=== PATIENT | female | born 2000 | race Hispanic/Latino ===

== ENCOUNTER 2024-08-20 17:49 | Emergency (ER) | payer MEDICAID, SELFPAY ==
[2024-08-20 18:05] VITALS: BP 106/75; PULSE 88; RESP 20; TEMP 37.3; O2SAT 100
--- NOTE | 2024-08-20 18:13 | ED_ITS ---
HPI - URI/Sore Throat General Chief Complaint: Upper Respiratory Infection Stated Complaint: Sore Throat Source: patient Mode of arrival: ambulatory Limitations: no limitations History of Present Illness HPI Narrative: Patient presents to the [facility] with complaints of a sore thoat, body aches, and chills for 2 days. She also is complaining of abdomen pain and blood in her stool. Patient states that she was late with her period last month and had a period that only lasted 3 days when it came. She says she was took a test last month, but it was invalid. She typically is constipated, but she has n ever noticed blood in her stool before. Denies any fever, SOB or difficulty swallowing. Related Data Allergies Allergy/AdvReac Type Severity Reaction Status Date / Time amoxicillin AdvReac Intermediate Nausea and Verified 08/20/24 18:14 Vomiting Review of Systems Review of Systems: CONSTITUTIONAL: Reports body aches and chills. Denies fever or sweats. EYES: Denies visual changes, redness, or discharge. ENT: Reports sore throat. Denies rhinorrhea, congestion, or otalgia. CARDIOVASCULAR: Denies chest pain, palpitations, or edema. RESPIRATORY: Denies dyspnea. GASTROINTESTINAL: Reports abdominal pain, nausea, vomiting, and blood in stool. SKIN: Denies rash. NEUROLOGIC: Reports Headache. All systems reviewed & are unremarkable except as noted in HPI and below PMFSH Comments At time of signature, I have reviewed and agree with nursing past medical, surgical, social and family history unless otherwise noted. Please see nursing chart for further information. There is no relevant family history pertinent to the presenting complaint. Exam Narrative: GENERAL: Ill-appearing, ?no acute distress. EYES: ?conjunctivae clear ENT: Mucous membranes moist. TM pearly cazares with normal light reflex bilaterally; no tragal tenderness. Oropharynx erythematous without lesions. Tonsils enlarged with exudate. No drooling, no hoarseness, no trismus, uvula midline. No tripod positioning, hot potato voice, or soft palate swelling. NECK: Supple. No lymphadenopathy CHEST: Clear to auscultation, breath sounds equal. ?No respiratory distress, speaks in full sentences. HEART: Regular rate and rhythm. No murmur heard. SKIN: Warm, dry, no rash. NEURO: Alert and oriented x3.? GI: Inspection: normal to inspection GI Palp: Yes abdominal tenderness, Yes Soft to palpation and No Guarding due to palpation present (GI) Percussion: Yes normal to percussion Auscultation: normal bowel sounds Course Course Level of Care: Express Care Visit Vital Signs Vital signs: Vital Signs Temperature 99.2 F 08/20/24 18:05 Pulse Rate 88 08/20/24 18:05 Respiratory Rate 20 08/20/24 18:05 Blood Pressure 106/75 08/20/24 18:05 Pulse Oximetry 100 08/20/24 18:05 Temperature 99.2 F 08/20/24 18:05 Pulse Rate 88 08/20/24 18:05 Respiratory Rate 20 08/20/24 18:05 Blood Pressure 106/75 08/20/24 18:05 Pulse Oximetry 100 08/20/24 18:05 Reviewed. MDM - URI/Sore Throat MDM Narrative Medical decision making narrative: Pt mildly ill appearing, in no respiratory distress, hemodynamically stable. Recommend supportive care. The patient is stable at time of discharge the clinical impression was discussed and the patient was given the opportunity to ask questions, which were addressed as completely as possible given the information available at present. Discussed with patient in great length the need for her to go to the ER with her complaints of abdomen pain and blood in her stool. Pt denies the need to go to ER. She states she will go if the pain continues. Exam findings show no acute concerns or changes Patient is appropriate for outpatient treatment and follow-up. Differential Diagnosis Differential diagnosis: Likely upper respiratory infection, viral infection, influenza and other (mono, covid) Critical Care Time Critical Care Time Critical Care Time: No Discharge Plan Discharge Clinical Impression: Acute bacterial tonsillitis Patient Disposition: Home Condition: Stable Instructions: Tonsillitis (ED) Additional Instructions: Take antibiotic as prescribed. Recommendations: Flonase spray and Zyrtec for sinus congestion Tylenol every 8 hours as needed for pain/fever Soft foods, cool liquids, warm tea. Gargle with warm saltwater twice a day. Chloraseptic spray and throat lozenges. Rest and stay hydrated. --Follow up with your PCP --Go to the ER immediately if you cannot swallow your saliva, trouble breathing/wheezing, throat swelling, pain is persistent and severe Patient Language: Bulgarian Prescriptions: New cefdinir 300 mg capsule 300 mg PO BID 10 Days Qty: 20 0RF prednisone 20 mg tablet 40 mg PO DAILY 5 Days Qty: 10 0RF Follow-up/Referrals: PHYSICIAN,WATER RESOURCE ENGINEER [Primary Care Provider] - Stand Alone Forms: Work/School Release IP Time of Disposition: 19:34
[2024-08-20 18:21] LABS: EDSTREPNEGPOS1 Negative (Negative)
[2024-08-20 19:25] LABS: EDMONONEGPOS Negative (Negative); EDUAAPPEAR Clear; EDUABILI Negative (Negative); EDUABLOOD Negative (Negative); EDUACOLOR1 Yellow; EDUAGLUCOSE Negative (Negative); EDUAKETONE Negative (Negative); EDUALEUKO Negative (Negative); EDUANITRATE Negative (Negative); EDUAPH 6.5; EDUAPROTEIN Negative (Negative); EDUAUROBILI 0.2
[2024-08-20 19:26] LABS: BEDSIDEPREGUCG Negative (Negative); EDCOVIDSCREEN Negative (Negative); EDINFLUASCREEN Negative (Negative); EDINFLUBSCREEN Negative (Negative)
== END 2024-08-20 19:42 | disposition home or self-care (01) ==
DX: J03.90 Acute tonsillitis, unspecified (principal)
CPT/HCPCS: 36416; 81003; 81025; 86308; 87081; 87426; 87804; 87880; 99203; G0463

== ENCOUNTER 2024-08-21 09:00 | Emergency (ER) | payer MEDICAID, SELFPAY ==
--- NOTE | ~2024-08-21 | CT_ITS ---
EXAMINATION: CT soft tissue neck w con DATE: 08/21/2024 12:28 INDICATION: Neck swelling. Sore throat. TECHNIQUE: Computed tomography (CT) of the neck was performed with 75 mL Omnipaque-350 intravenous co ntrast. Automated exposure control and iterative reconstruction technique were employed. The dose-kamryn gth product was 342.24 mGy-cm. COMPARISON: None FINDINGS: There is some motion artifact at the level of the hypopharynx. Orbits are normal. The paranasal sinus es are clear. Visualized sinuses and mastoid aircells are well aerated. Submandibular and parotid gla nds are symmetric. Thyroid gland is unremarkable. There are scattered normal-sized lymph nodes in the neck, no lymphadenopathy. No masses identified. There is low-density fluid versus mucus in the poste rior nasopharynx. There is heterogeneous decreased density in the right palatine tonsil and focal 8 m m hypodense region in the left palatine tonsil, the latter with suggestion of subtle rim enhancement on the sagittal imaging consistent with a small tonsillar abscess. Epiglottis is unremarkable. Visual ized apices of lungs are clear. The vasculature is patent and normal in caliber. Left vertebral arter y is dominant. There is symmetric mildly enlarged likely reactive level 2 internal jugular chain lymp h nodes measuring up to 1.4 cm axial short axis diameter on the right and 1.3 cm on the left. Bones a re unremarkable. IMPRESSION: 1. Likely bilateral tonsillitis with 8 mm at the developing abscess in the left palatine tonsil. 2. Likely reactive mild bilateral level 2 jugular chain lymphadenopathy. Reviewed, dictated and finalized at location A.
[2024-08-21 08:58] VITALS: BP 122/63; PULSE 95; RESP 14; TEMP 37; O2SAT 100
[2024-08-21 11:06] VITALS: BP 115/95; PULSE 104; RESP 20; O2SAT 100
--- NOTE | 2024-08-21 11:16 | ECG_ITS ---
Test Date: 2024-08-21 11:33:07 Measurements Intervals [place] Rate: 81 P: 48 [place]: 145 QRS: 68 QRSD: 85 T: 39 QT: 336 QTc: 391 Interpretive Statements SINUS RHYTHM WITH SINUS ARRHYTHMIA NONSPECIFIC T-WAVE ABNORMALITY No previous ECG available for comparison Electronically Signed On 08-21-2024 19:11:30 CDT by Jeny Sarmiento
--- NOTE | 2024-08-21 11:19 | ED_ITS ---
HPI - General Adult General Chief complaint: Unspecified Stated complaint: throat pain Time Seen by Provider: 08/21/24 09:06 History of Present Illness HPI narrative: Patient is a 24-year-old female who presents the ER with a 3-4 day history of a sore throat and tonsil swelling. She reports she went to urgent care yesterday who tested her for strep, which came back negative. Patient reports they told her she had a bilateral ear infections of they started her on cefdinir and gave her prescription for prednisone. It is unclear whether not patient has been able to keep any of her oral antibiotics down. She endorses significant difficulty swallowing, drooling, chills/sweats, and burning throat. Patient denies increased fatigue, but does endorse belly pain. She reports she recently had influenza A and B. patient denies any other relevant medical history besides ?mental health issues. Related Data Allergies Allergy/AdvReac Type Severity Reaction Status Date / Time amoxicillin AdvReac Intermediate Nausea and Verified 08/21/24 09:10 Vomiting Review of Systems 2 Review of Systems: All systems reviewed & are unremarkable except as noted in HPI and below Exam 2 Narrative: GENERAL: Well appearing, well-nourished, non-toxic, in no acute distress. HEAD: Normocephalic, atraumatic. Negative for uvula deviation. Significantly 3+ reddened, swollen tonsils with visible pus pockets. Muffled voice when speaking. NECK: Supple. Positive adenopathy. RESPIRATORY: Airway patent, respirations nonlabored. Clear to auscultation bilaterally, no rales, rhonchi, wheezing. CARDIOVASCULAR: Regular rate and rhythm without murmurs, rubs, or gallops. Peripheral pulses 2+ and equal bilaterally. ABDOMINAL: Soft, nontender, nondistended, no hepatosplenomegaly. Normoactive BS. MUSCULOSKELETAL: Moves all extremities. Strength/ROM intact without gross deformities. SKIN: Warm, dry, normal color. No rashes. NEURO: A&O X3. Speech clear. Cranial nerves II-XII intact. No ataxic movements. PSYCHIATRIC: Appropriate mood and affect. Normal interaction. Course Vital Signs Vital signs: Vital Signs Temperature 37.0 C 08/21/24 08:58 Pulse Rate 95 08/21/24 08:58 Respiratory Rate 14 08/21/24 08:58 Blood Pressure 122/63 08/21/24 08:58 Pulse Oximetry 100 08/21/24 08:58 Oxygen Delivery Room Air 08/21/24 08:58 Temperature 37.0 C 08/21/24 08:58 Pulse Rate 89 08/21/24 13:39 Respiratory Rate 19 08/21/24 13:39 Blood Pressure 125/64 08/21/24 13:39 Pulse Oximetry 99 08/21/24 13:39 Oxygen Delivery Room Air 08/21/24 08:58 Medical Decision Making MDM Narrative Medical decision making narrative: Patient is a 24-year-old female who presents the ER with a 3-4 day history of a sore throat and tonsil swelling. She reports she went to urgent care yesterday who tested her for strep, which came back negative. Patient reports they told her she had a bilateral ear infections of they started her on cefdinir and gave her prescription for prednisone. It is unclear whether or not patient has taken or been able to swallow her oral antibiotics. She endorses significant difficulty swallowing, drooling, chills/sweats, and burning throat. Patient denies increased fatigue, but does endorse belly pain. She reports she recently had influenza A and B. patient denies any other relevant medical history besides ?mental health issues. Labs Ordered: CBC, CMP, strep, COVID/flu/RSV swab, blood cultures, lactic acid, mono test, CRP Imaging Ordered: CT soft tissue neck Medications Ordered: 1 L normal saline IV bolus, Toradol 15 mg IV, Unasyn IV, Decadron 10 mg IV, Benadryl 25 mg IV Results: Pt's CT scan indicates 1. Likely bilateral tonsillitis with 8 mm at the developing abscess in the left palatine tonsil. 2. Likely reactive mild bilateral level 2 jugular chain lymphadenopathy. Diagnosis: Tonsillar abscess, sore throat, lymphadenopathy Consults: None necessary Patient Education/Shared MDM: Results of lab work and imaging shared with patient. She endorses significant improvement following medication administration. P.O. challenge performed on patient and she denies any pain with swallowing. She took an oral dose of her prescribed antibiotics here in the ER and was able to keep the pill down. Patient strongly advised to maintain hydration status upon discharge and follow-up with her PCP as soon as possible. She will be discharged home with no new prescriptions but was advised to complete her medications prescribed yesterday. Strict return precautions provided. Patient verbalized understanding is in agreement with plan. Vital signs stable at time of discharge. All questions answered. Differential Diagnosis Differential Diagnosis: Retropharyngeal abscess, peritonsillar abscess, strep throat, [place] Vital Signs Vital Signs: Vital Signs Temperature 37.0 C 08/21/24 08:58 Pulse Rate 95 08/21/24 08:58 Respiratory Rate 14 08/21/24 08:58 Blood Pressure 122/63 08/21/24 08:58 Pulse Oximetry 100 08/21/24 08:58 Oxygen Delivery Room Air 08/21/24 08:58 Temperature 37.0 C 08/21/24 08:58 Pulse Rate 89 08/21/24 13:39 Respiratory Rate 19 08/21/24 13:39 Blood Pressure 125/64 08/21/24 13:39 Pulse Oximetry 99 08/21/24 13:39 Oxygen Delivery Room Air 08/21/24 08:58 Lab Data Lab results reviewed: Yes I reviewed the patient's lab results. 08/21/24 11:46 08/21/24 11:46 Labs: Lab Results 08/21/24 08/21/24 Range/Units 11:46 12:10 WBC 12.0 H (4.5-10.0) K/mm3 RBC 4.22 (4.2-5.4) M/mm3 Hgb 11.5 L (12.0-15.0) g/dL Hct 35.4 L (37.0-47.0) % MCV 83.9 (80-100) fl MCH 27.3 (26-34) pg MCHC 32.5 (32-36) g/dl RDW 13.4 (11.5-14.5) % Plt Count 164 (150-375) k/mm3 MPV 12.0 H (7.4-10.4) fl Immature Gran % (Auto) 0.4 (0-0.5) % Neut % (Auto) 85.3 H (45.5-73.1) % Lymph % (Auto) 6.7 L (18.3-44.2) % [place] % (Auto) 6.7 (2.6-8.5) % Eos % (Auto) 0.7 (0-4.4) % Baso % (Auto) 0.2 (0.2-1.2) % Lymph # (Auto) 0.81 L (0.9-3.2) K/mm3 [place] # (Auto) 0.8 H (0.1-0.6) K/mm3 Eos # (Auto) 0.1 (0-0.3) K/mm3 Baso # (Auto) 0.0 (0.0-0.1) K/mm3 Abs Immat Gran (auto) 0.05 H (0.00-0.031) K/mm3 Absolute Neuts (auto) 10.3 H (1.3-6.7) K/mm3 Absolute Nucleated RBC 0.000 (0.0-0.012) K/mm3 Nucleated RBC % 0.0 (0.0-0.2) % Sodium 135 L (137-145) mmol/L Potassium 3.6 (3.4-5.0) mmol/L Chloride 106 (98-107) mmol/L Carbon Dioxide 22 (22-30) mmol/L Anion Gap 7 (4-12) mmol/L BUN 12 (7-17) mg/dL Creatinine 0.56 L (0.7-1.0) mg/dL Estim Creat Clear Calc Not Reportable Estimated GFR > 60 (59 - ) Glucose 87 (65-110) mg/dL Lactic Acid 0.9 (0.7-2.0) mmol/L Calcium 8.4 (8.4-10.2) mg/dL Total Bilirubin 0.5 (0.2-1.3) mg/dL AST 21 (14-36) U/L ALT 39 H (6-35) U/L Alkaline Phosphatase 57 (38-126) U/L C-Reactive Protein 3.5 H (<1.0) mg/dL Total Protein 6.0 L (6.3-8.2) g/dL Albumin 3.7 (3.5-5.1) g/dL Monoscreen Negative (Negative) Influenza A (RT-PCR) Negative (Negative) Influenza B (RT-PCR) Negative (Negative) RSV (RT-PCR) Negative (Negative) SARS-CoV-2 RNA (RT-PCR) Negative (Negative) Group A Strep (PCR) Not detected (Negative) Imaging Data Attestation: I personally reviewed and interpreted this imaging study as follows: Radiologist's impression: Impressions Soft Tissue Neck CT 08/21/24 12:32 IMPRESSION: 1. Likely bilateral tonsillitis with 8 mm at the developing abscess in the left palatine tonsil. 2. Likely reactive mild bilateral level 2 jugular chain lymphadenopathy. Discharge Plan Discharge Clinical Impression: Abscess of tonsil, Lymphadenopathy of head and neck region, Acute sore throat Patient Disposition: Home Condition: Stable Instructions: Antibiotic Form Additional Instructions: Please return to the ER with any worsening symptoms. Follow-up with primary care provider as soon as possible. Take all medications as prescribed, including regularly scheduled medications. Please complete your full dose of antibiotics that were prescribed to you at urgent care yesterday. You may use Tylenol and ibuprofen for pain control at home. Patient Language: Japanese Prescriptions: No Action cefdinir 300 mg capsule 300 mg PO BID 10 Days Qty: 20 0RF prednisone 20 mg tablet 40 mg PO DAILY 5 Days Qty: 10 0RF Follow-up/Referrals: Hayley Harris MD [Physician] - (ear nose and throat) PHYSICIAN,CHOCOLATE PRODUCTION MACHINE OPERATOR [Primary Care Provider] - Stand Alone Forms: Work/School Release IP Time of Disposition: 13:57
[2024-08-21] MEDS: SODIUM CHLORIDE 0.9% IV 1,000 ML 999 ML IV CONT (11:22)
[2024-08-21] MEDS: dexAMETHasone SOD PHOS INJ 10 MG/ML 1 ML VIAL IV PUSH (11:25)
[2024-08-21] MEDS: KETOROLAC 15 MG/ML VIAL (*BKC) IV PUSH (11:26)
[2024-08-21 11:54] LABS: Basophils Percent Auto 0.2 % (0.2-1.2); Eosinophils Absolute Auto 0.1 K/mm3 (0-0.3); Eosinophils Percent Auto 0.7 % (0-4.4); Hematocrit 35.4 % (37.0-47.0); Hemoglobin 11.5 g/dL (12.0-15.0); Immature Granulocyte Absolute 0.05 K/mm3 (0.00-0.031); Immature Granulocyte Percent A 0.4 % (0-0.5); Lymphocytes Absolute Auto 0.81 K/mm3 (0.9-3.2); Lymphocytes Percent Auto 6.7 % (18.3-44.2); Mean Corpuscular HGB Conc 32.5 g/dl (32-36); Mean Corpuscular Hemoglobin 27.3 pg (26-34); Mean Corpuscular Volume 83.9 fl (80-100); Monocytes Absolute Auto 0.8 K/mm3 (0.1-0.6); Monocytes Percent Auto 6.7 % (2.6-8.5); Neutrophils Absolute Auto 10.3 K/mm3 (1.3-6.7); Neutrophils Percent Auto 85.3 % (45.5-73.1); Platelet Count Result 164 k/mm3 (150-375); Red Blood Count 4.22 M/mm3 (4.2-5.4); Red Cell Distribution Width 13.4 % (11.5-14.5)
[2024-08-21 12:03] LABS: Lactic Acid Reflex 0.9 mmol/L (0.7-2.0)
[2024-08-21 12:09] LABS: Alanine Aminotransferase 39 U/L (6-35); Albumin Level 3.7 g/dL (3.5-5.1); Alkaline Phosphatase 57 U/L (38-126); Anion Gap 7 mmol/L (4-12); Aspartate Amino Transferase 21 U/L (14-36); Bilirubin,Total 0.5 mg/dL (0.2-1.3); Blood Urea Nitrogen 12 mg/dL (7-17); Calcium 8.4 mg/dL (8.4-10.2); Carbon Dioxide 22 mmol/L (22-30); Chloride 106 mmol/L (98-107); Estimated Glomerular Filt Rate > 60; Glucose 87 mg/dL (65-110); Potassium 3.6 mmol/L (3.4-5.0); Sodium 135 mmol/L (137-145)
[2024-08-21 12:18] LABS: Monoscreen Negative (Negative); Negative Monotest Control Negative (Negative); Positive Monotest Control Positive (Positive)
[2024-08-21 12:34] LABS: CRP 3.5 mg/dL (<1.0)
[2024-08-21 12:38] VITALS: BP 126/75; PULSE 98; RESP 17; O2SAT 100
[2024-08-21] MEDS: diphenhydrAMINE HCl INJ 50 MG/ML VIAL 25 MG IV PUSH (12:41)
[2024-08-21] MEDS: AMPICILLIN SULB 1.5 GM/NS 50ML 1.5 GM/50 ML VIAL IVPB (12:43)
[2024-08-21 12:46] LABS: Strep Group A RT-PCR NOT DETECTED (Negative)
[2024-08-21 12:57] LABS: Influenza A QL RT-PCR Negative (Negative); Influenza B QL RT-PCR Negative (Negative); RSV RNA, RT-PCR Negative (Negative); SARS-CoV-2 RNA PCR Negative (Negative)
[2024-08-21 13:39] VITALS: BP 125/64; PULSE 89; RESP 19; O2SAT 99
[2024-08-21 14:07] VITALS: BP 132/73; PULSE 92; RESP 16; O2SAT 100
--- OUTSIDE RECORDS SUMMARY | 2024-08-22 11:29 | XMS_ITS | Clinical Summary ---
Author Organization [facility] Address [address] [place] [address] Phone Care Team Providers Care Director Electrical Engineering Name Role Phone Provider, None Primary Care Provider Unavailabl e Allergies No known active allergies Medications ARIPiprazole (ABILIFY) 10 MG Tablet Take 1 Tablet by mouth daily. 30 Tablet 07/15/2024 Active hydrOXYzine (VISTARIL) 25 MG Capsule Take 1 Capsule by mouth 2 times daily as needed for Anxiety. 60 Capsule 07/15/2024 Active Active Problems Problem Noted Date Diagnosed Date Bipolar disorder, current ep isode depressed, severe, with psychotic features 07/16/2024 Generalized anxiety disorder 07/16/2024 PTSD (post-traumatic stress disorder) 07/16/2024 Cocaine use disorder, severe, in early remission 07/16/2024 Cannabis use disorder, moderate, dependence 06/21 Encounters Date Type Department Care Team Description 08/21/2024 Refill [facility]iatry [facility],[place] [id number] [phone] Pallavi Bobo APRN, ADÁN Medication Refill 08/21/2024 Refill [facility] [address] [phone] Pallavi Bobo APRN, ADÁN Medication Refill 08/19/2024 11:00 AM CDT Telemedicine Psychiatry [facility],[address] [phone] Dannielle Butler, QMHP, Sahra Shukla QMHP Bipolar disorder, current episode depressed, severe, with psychotic features (HCC) (Primary Dx) 08/19/2024 Travel 08/12/2024 Travel 08/05/2024 11:00 AM CDT Telemedicine [facility],[address] [phone] Dannielle Butler, QMHP, Sahra Shukla QMHP Bipolar disorder, current episode depressed, severe, with psychotic features (HCC) (Primary Dx) 08/05/2024 Travel 07/29/2024 Telephone [facility],[address] [phone] Sahra Garcia QM 07/29/2024 [place] [facility],[address] [phone] Sahra Garcia QM 07/22/2024 10:00 AM CDT Clinical Support [facility],[address] [phone] Dannielle Butler, QMHP, Sahra Shukla QMHP Generalized anxiety disorder (Primary Dx); PTSD (post-traumatic stress disorder); Bipolar disorder, current episode depressed, severe, with psychotic features (HCC) 07/22/2024 Travel 07/15/2024 9:00 AM CDT Office Visit Psychiatry [facility],[address] [phone] Pallavi Bobo APRN, ADÁN Bipolar disorder, current episode depressed, severe, with psychotic features (HCC) (Primary Dx); Generalized anxiety disorder; PTSD (post-traumatic stress disorder); Cocaine use disorder, severe, in early remission (HCC); Cannabis use disorder, moderate, dependence (HCC) 07/15/2024 Telephone [facility],[place] [address] [facility] [address] [place] [phone] Sahra Garcia [facility] 07/15/2024 Travel 06/15/2024 Travel 06/11/2024 10:30 AM GERIATRIC NURSE ASSISTANT Initial Consult [facility],[address] [place] [phone] Dannielle Butler, [facility], Dk Nance [facility] Moderate bipolar I disorder, most recent episode mixed (HCC) (Primary Dx) 06/11/2024 Travel from Last 3 Months Social History Tobacco Use Types Packs/Day Years Used Date Smoking Tobacco: Never Smokeless Tobacco: Never Tobacco Cessation:Counseling Given: Not Answered Alcohol Use Standard Drinks/Week Comments Never 0 (1 standard drink = 0.6 oz pur e alcohol) PHQ-2 Answer Date Recorded Total Score - Questions 1-9 06/21 Comments No Sex and Gender Information Value Date Recorded Sex Assigned at Female 07/15/2024 8:53 AM CDT Legal Sex Female 1:11 PM GERIATRIC NURSE ASSISTANT Gender Identity Female 04/26/2022 6:08 PM GERIATRIC NURSE ASSISTANT Sexual Orientation Not on file Last Filed Vital Signs Vital Sign Reading Time Taken Comments Blood Pressure 128/81 02/08/2023 9:35 AM CDT Pulse 87 02/08/2023 9:35 AM CDT Temperature 36.1 C (97 F) 02/08/2023 9:35 AM CDT Respiratory Rate 16 02/08/2023 9:35 AM CDT Oxygen Saturation 97% 02/08/2023 9:35 AM CDT Inhaled Oxygen Concentration - - Weight 49.4 kg (108 lb 12.8 oz) 07/15/2024 9:00 AM CDT Height 144.8 cm (4' 9 ) 07/15/2024 9:00 AM CDT Body Mass Index 23.54 07/15/2024 9:00 AM CDT Plan of Treatment Upcoming Encounters Date Type Department Care Team (Late st Contact Info) Description 08/26/2024 11:00 AM CDT Telemedicine [facility],[place] [address] [phone] Dannielle Butler, QM, LP [address] [place] [address] Sahra Garcia QM 09/02/2024 11:00 AM CDT Telemedicine Psychiatry [facility],[address] [phone] Dannielle Butler, [facility] [address] [place] [address] Sahra Garcia QM 09/09/2024 11:00 AM CDT Telemedicine Psychiatry [facility],[address] [phone] Dannielle Butler, [facility] [address] [place] [address] Sahra Garcia QM 09/16/2024 11:00 AM CDT Telemedicine Psychiat[facility],[address] [phone] Dannielle Butler, [facility] [address] [place] [address] Sahra Garcia [facility] Health Maintenance Due Date Last Done Comments Meningococcal B Immunization (1 of 2 - Standard) 2017 Pap Smear 2022 SARS-COV-2 Immunization ( - 2023- season) 2023 06/04/2021, 05/14/2021 Respiratory Syncytial Virus (RSV) Immunization (Adult) (1 - 1-dose 75+ series) 2076 Hepatitis B Immunization Completed 002, 2001, 2001 Pneumococcal Immunization Combined Aged Out 10/02/2002, 2001, 2001, Additional history exists No longer eligible based on patient's age to complete this topic Human Papillomavirus (HPV) Immunization Completed 12/04/2011, 07/30/2011, 06/06/2011 Meningococcal Immunization (ACWY) Completed 12/10/2017, 12/01/2012 DTaP/Tdap/Td Immunization Discontinued 2020, 12/01/2012, 12/14/2005, Additional history exists TdaP Immunization Completed 08/12/2020, 12/01/2012 Hepatitis C Virus (HCV) Screening Completed 05/06/2024 Influenza Immunization Completed , 05/14/2021, 04/01/2020, Additional history exists Rotavirus Immunization Aged Out No lo nger eligible based on patient's age to complete this topic Goals Goal Patient Goal Type Associated Problems Recent Progress Patient-Stated? Author Behavioral Health Behavioral Health Yes Dk Meyer, [facility] Note: Happiness, I want to work on my aggression and anger. GOAL Start Date: 06/11/24 Target Date: 12/09/2024 Individual's Strengths and skills that will be utilized to meet this goal: Resiliency, Optimism Supports, resources, organizations and individuals needed to meet this goal: Family Potential barriers to meeting this goal: Substance abuse Goal Status: New OBJECTIVE (1) Identify 3 triggers that affects presenting symptoms (2) Develop 3 coping skills to assist with symptoms reduction (3) Take medication as prescribed daily Objective Status: New INTERVENTIONS Therapy/Counseling - Individual 2 hours weekly for 6 months Therapy/Counseling - Group 2 hours weekly for 6 months Case Management - Consultation 2 hours weekly for 6 months Case Management - Mental Health 2 hours weekly for 6 months Community Support - Individual 1 hour every week for 6 months Medication Monitoring 1 hour every week for 6 months Medication Training 1 hour every week for 6 months Psychiatric Evaluation 2 hours annually Psychiatry 1 hour every month for 6 months Insurance [place] Care Teams Director Electrical Engineering Relationship Specialty Start Date End Date Provider, None [place] PCP - General 09/22/18
== END 2024-08-21 14:09 | disposition home or self-care (01) ==
PROVIDERS: Emergency Provider Registered Nurse
DX: J36 Peritonsillar abscess (principal); R59.1 Generalized enlarged lymph nodes; Z20.822 Contact with and (suspected) exposure to COVID-19; R94.31 Abnormal electrocardiogram [ECG] [EKG]
CPT/HCPCS: 36415; 70491; 80053; 83605; 85025; 86140; 86308; 87040; 87637; 87651; 93005; 96365; 96375; 99284; J0295; J1100; J1200; J1885; J7030; Q9967